=== PATIENT | male | born 1965 | race Caucasian/White ===

== ENCOUNTER → 2020-12-06 | Outpatient (CLI) | payer BC | LOC: OPSV 06:28 | DX: E83.110 Hereditary hemochromatosis (principal) | CPT/HCPCS: 36415; 82728; 85018; 99195 ==

== ENCOUNTER → 2021-01-01 | Outpatient (CLI) | payer BC | LOC: OPSV 06:15 | DX: E83.110 Hereditary hemochromatosis (principal) | CPT/HCPCS: 36415; 82728; 85018; 99195 ==

== ENCOUNTER → 2021-01-29 | Outpatient (CLI) | payer BC | LOC: OPSV 06:37 | DX: E83.110 Hereditary hemochromatosis (principal) | CPT/HCPCS: 36415; 82728; 85018; 99195 ==

== ENCOUNTER → 2021-02-27 | Outpatient (CLI) | payer BC | LOC: OPSV 02-26 07:00 | DX: E83.110 Hereditary hemochromatosis (principal) | CPT/HCPCS: 36415; 82728; 85018 ==

== ENCOUNTER → 2021-04-02 | Outpatient (CLI) | payer BC | LOC: OPSV 04-01 12:09 | DX: E83.110 Hereditary hemochromatosis (principal) | CPT/HCPCS: 36415; 82728; 85018; 99195 ==

== ENCOUNTER → 2021-05-02 | Outpatient (CLI) | payer BC | LOC: LAB 06:55 | DX: E83.110 Hereditary hemochromatosis (principal) | CPT/HCPCS: 36415; 80076; 82728; 85018; 99195 ==

== ENCOUNTER → 2021-05-29 | Outpatient (CLI) | payer BC ==
[~2021-05-29] MED LIST: HYDROCODON-ACE1 EAC4 PO
== END ==
LOC: LAB 13:53
DX: E83.110 Hereditary hemochromatosis (principal)
CPT/HCPCS: 82728; 85018

== ENCOUNTER → 2021-06-28 | Outpatient (CLI) | payer BC | LOC: LAB 06:28 | DX: E83.110 Hereditary hemochromatosis (principal) | CPT/HCPCS: 36415; 82728; 85018 ==

== ENCOUNTER 2021-07-10 16:04 | Emergency (ER) | payer OTHER, BC ==
[2021-07-10 19:24] LABS: HEMOGLOBIN 18.1 gm/dl (14.0-17.5); RED BLOOD COUNT 5.7 M/UL (4.20-5.50)
[2021-07-10 19:43] LABS: BUN/CREATININE RATIO 15 (0-10)
[2021-07-10] MEDS ORDERED: HYDROCODON-ACE1 EAC4 PO (22:48)
== END 2021-07-10 23:00 | disposition home or self-care (01) ==
LOC: ER1 16:04
PROVIDERS: Physician Assistant
DX: S30.1XXA Contusion of abdominal wall, initial encounter (principal); S20.214A Contusion of middle front wall of thorax, initial encounter; Z90.49 Acquired absence of other specified parts of digestive tract; V49.40XA Driver injured in collision with unspecified motor vehicles in traffic accident, initial encounter; Y92.410 Unspecified street and highway as the place of occurrence of the external cause
CPT/HCPCS: 71260; 80053; 85025; 99284; Q9967

== ENCOUNTER → 2021-07-19 | Outpatient (CLI) | payer OTHER, BC | LOC: RAD 11:48 | DX: M53.3 Sacrococcygeal disorders, not elsewhere classified (principal); R07.81 Pleurodynia; S22.41XA Multiple fractures of ribs, right side, initial encounter for closed fracture; V89.2XXA Person injured in unspecified motor-vehicle accident, traffic, initial encounter | CPT/HCPCS: 71101; 72220 ==

== ENCOUNTER → 2021-07-23 | Outpatient (CLI) | payer OTHER, BC | LOC: RAD 08:05 | DX: R07.81 Pleurodynia (principal); V89.2XXA Person injured in unspecified motor-vehicle accident, traffic, initial encounter; M19.09 Primary osteoarthritis, other specified site | CPT/HCPCS: 71120 ==

== ENCOUNTER → 2021-07-31 | Outpatient (CLI) | payer BC | LOC: OPSV 07-01 12:00 | DX: E83.110 Hereditary hemochromatosis (principal) | CPT/HCPCS: 36415; 82728; 85018 ==

== ENCOUNTER → 2021-08-09 | Outpatient (CLI) | payer BC ==
[2021-08-09 06:51] LABS: HEMOGLOBIN 16.9 gm/dl (14.0-17.5); RED BLOOD COUNT 5.35 M/UL (4.20-5.50); WHITE BLOOD COUNT 5.1 K/UL (4.5-11.0)
== END ==
LOC: LAB 06:18
PROVIDERS: Family Medicine
DX: Z00.00 Encounter for general adult medical examination without abnormal findings (principal); Z12.5 Encounter for screening for malignant neoplasm of prostate; E78.5 Hyperlipidemia, unspecified; D72.829 Elevated white blood cell count, unspecified
CPT/HCPCS: 36415; 80061; 84153; 85027

== ENCOUNTER → 2021-08-26 | Outpatient (CLI) | payer BC | LOC: LAB 06:36 | DX: E83.110 Hereditary hemochromatosis (principal) | CPT/HCPCS: 36415; 82728; 85018; 99195 ==

== ENCOUNTER → 2021-11-26 | Outpatient (CLI) | payer BC | LOC: LAB 06:37 | DX: E83.110 Hereditary hemochromatosis (principal) | CPT/HCPCS: 36415; 82728; 85018 ==

== ENCOUNTER → 2022-01-28 | Outpatient (CLI) | payer BC | LOC: LAB 06:48 | DX: E83.110 Hereditary hemochromatosis (principal) | CPT/HCPCS: 36415; 82728; 85018; 99195 ==

== ENCOUNTER → 2022-04-29 | Outpatient (CLI) | payer BC | LOC: LAB 07:02 | DX: E83.110 Hereditary hemochromatosis (principal) | CPT/HCPCS: 36415; 82728; 85018 ==

== ENCOUNTER → 2022-08-05 | Outpatient (CLI) | payer BC ==
[2022-08-05 11:23] LABS: HEMOGLOBIN 16.8 gm/dl (14.0-17.5); RED BLOOD COUNT 5.05 M/UL (4.20-5.50); WHITE BLOOD COUNT 6.7 K/UL (4.5-11.0)
[2022-08-05 12:32] LABS: BUN/CREATININE RATIO 18 (0-10)
== END ==
LOC: LAB 10:48
PROVIDERS: Family Medicine
DX: E78.2 Mixed hyperlipidemia (principal); I10 Essential (primary) hypertension
CPT/HCPCS: 36415; 80053; 80061; 82728; 83735; 84153; 85027